=== PATIENT | female | born 1990 | race American Indian/Alaskan Native ===

== ENCOUNTER 2019-07-14 13:59 | Emergency (ER) | payer SELFPAY ==
[2019-07-14] MEDS ORDERED: FIORICET PO ONE (14:21)
[2019-07-14] MEDS ORDERED: NACL 0.9% 1000 ML 1,000 ML IV ONE (14:21)
[2019-07-14] MEDS ORDERED: BENADRYL IV ONE ×2 (14:21→17:54)
[2019-07-14] MEDS ORDERED: DECADRON IV ONE (14:21)
[2019-07-14] MEDS ORDERED: REGLAN IV ONE ×2 (14:21→17:54)
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
[2019-07-14 15:03] LABS: Basophils % (Auto) 0.4 % (0.0-1.8); Eosinophils # (Auto) 0.1 K/mm3 (0.0-0.4); Eosinophils % (Auto) 1.8 % (0.0-4.3); Hematocrit 38.8 % (30.3-42.9); Lymphocytes # (Auto) 1.5 K/mm3 (1.2-5.4); Lymphocytes % (Auto) 37.5 % (13.4-35.0); Mean Corpuscular HGB Conc 34 % (30-34); Mean Corpuscular Volume 88 fl (79-97); Monocytes # (Auto) 0.4 K/mm3 (0.0-0.8); Monocytes % (Auto) 9.6 % (0.0-7.3); Platelet Count 207 K/mm3 (140-440); Red Blood Count 4.39 M/mm3 (3.65-5.03); Red Cell Distribution Width 13.3 % (13.2-15.2)
[2019-07-14 15:24] LABS: BUN/Creatinine Ratio 14; Blood Urea Nitrogen 7 mg/dL (7-17); Hemolysis Index 2
[2019-07-14] MEDS ORDERED: TORADOL IV ONE (17:54)
[2019-07-14 18:02] LABS: HCG Qualitative,Urine Negative (Negative)
[2019-07-14] MEDS ORDERED: REGLAN ONE (18:11)
--- NOTE | 2019-07-14 18:20 | Emergency Department Report ---
ED Headache HPI - General Chief Complaint: Headache Stated Complaint: HEADACHE/MIGRAINE Time Seen by Provider: 07/14/19 17:53 - History of Present Illness Initial Comments: 29-year-old -[place] female presents to the emergency room complaining of headache with light sensitivity since 10 AM today. Patient denies any recent trauma. Patient denies any nausea vomiting. Patient reports that she has history of headaches but never been diagnosed with migraines. Head Injury Location: temporal (right) Recent Head Trauma: frequent headaches Modifying Factors: improves with: exposure to light Associated Symptoms: denies symptoms Allergies/Adverse Reactions: Allergies No Known Allergies Allergy (Verified 07/14/19 14:20) Home Medications: Ambulatory Orders Butalb/Acetaminophen/Caffeine [Fioricet 50-300-40 mg CAP] 1 cap PO Q6HR PRN #20 cap 07/14/19 ED Review of Systems ROS: Stated complaint: HEADACHE/MIGRAINE Other details as noted in HPI Comment: All other systems reviewed and negative ED Past Medical Hx - Past Medical History Previous Medical History?: No - Surgical History Past Surgical History?: No - Social History Smoking Status: Never Smoker Substance Use Type: None - Medications Home Medications: Home Medications Medication Instructions Recorded Confirmed Last Taken Type Butalb/Acetaminophen/Caffeine 1 cap PO Q6HR PRN #20 cap 07/14/19 Unknown Rx [Fioricet 50-300-40 mg CAP] ED Physical Exam - General Limitations: No Limitations General appearance: alert, in no apparent distress - Head Head exam: Present: atraumatic, normocephalic - Eye Eye exam: Present: normal appearance, EOMI - ENT ENT exam: Present: mucous membranes moist - Neck Neck exam: Present: normal inspection, full ROM - Neurological Exam Neurological exam: Present: alert, oriented X3, normal gait - Expanded Neurological Exam Expanded Cranial nerves: EOM's Intact: Normal, Gag Reflex: Normal, Tongue Deviation: Normal, Nystagmus: Normal, Facial Sensation: Normal, Facial Palsy with Forehead Movement: Normal, Facial Palsy without Forehead Movement: Normal Cerebellar function: Finger to Nose: Normal, Heel to Nguyen: Normal, Romberg: Normal Upper motor neuron: Jaun Neglect: Normal, Pronator Drift: Normal, Babinski Sign: Normal, Sensory Extinction: Normal Sensory exam: Upper Extremity Light Touch: Normal, Upper Extremity Pin Prick: Normal, Upper Extremity Temperature: Normal, UE 2 Point Discrimination: Normal, Lower Extremity Light Touch: Normal, Lower Extremity Pin Prick: Normal, Lower Extremity Temperature: Normal, LE 2 Point Discrimination: Normal Motor strength exam: RUE: 4, LUE: 4, RLE: 4, LLE: 4 Best Eye Response ([place]): (4) open spontaneously Best Motor Response ([place]): (6) obeys commands Best Verbal Response ([place]): (5) oriented Deshawn Total: 15 - Psychiatric Psychiatric exam: Present: normal affect, normal mood - Skin Skin exam: Present: warm, dry, intact, normal color. Absent: rash ED Course Vital Signs 07/14/19 14:17 Temperature 98.5 F Pulse Rate 100 H Respiratory 16 Rate Blood Pressure 134/86 O2 Sat by Pulse 100 Oximetry ED Medical Decision Making - Lab Data Result diagrams: 07/14/19 14:51 07/14/19 14:51 - Medical Decision Making 29-year-old -[place] female presents to the emergency room complaining of headache with light sensitivity since 10 AM today. Patient denies any recent trauma. Patient denies any nausea vomiting. Patient reports that she has history of headaches but never been diagnosed with migraines. Patient given IV placement with Reglan 10 mg, Benadryl 25 mg and Toradol 15 mg IV. She will be discharged home on a prescription for Fioricet. Critical care attestation.: If time is entered above; I have spent that time in minutes in the direct care of this critically ill patient, excluding procedure time. ED Disposition Clinical Impression: Headache Qualifiers: Headache type: unspecified Headache chronicity pattern: acute headache Intractability: intractable Qualified Code(s): R51 - Headache Disposition: DC- TO HOME OR SELFCARE Is pt being admited?: No Does the pt Need Aspirin: No Condition: Stable Instructions: Acute Headache (ED) Prescriptions: Butalb/Acetaminophen/Caffeine [Fioricet 50-300-40 mg CAP] 1 cap PO Q6HR PRN #20 cap PRN Reason: Pain , Severe (7-10) Referrals: JORGE JARA MD [Referring] - 3-5 Days Forms: AMA Form, Accompanied Note, Work/School Release Form(ED)
[2019-07-14 19:16] VITALS: BP 110/65
== END 2019-07-14 19:15 | disposition home or self-care (01) ==
LOC: ED 13:59
DX: R51 Headache (principal)
CPT/HCPCS: 36415; 80048; 81025; 84484; 85025; 96374; 96375; 99283; J1200; J1885; J2765